=== PATIENT | female | born 1980 | race Caucasian/White ===

== ENCOUNTER 2022-11-23 09:07 | Emergency (ER) | payer BC, OTHER ==
[2022-11-23 09:20] VITALS: BP 118/62; PULSE 70
[2022-11-23] MEDS ORDERED: Lidocaine 1% 10 ML MDV INJECT ONE (09:26)
[2022-11-23] MEDS ORDERED: Diphtheria,Pertussis(Acell),Tetanus Vaccine 0.5 ML Syringe IM ONE (09:26)
== END 2022-11-23 10:39 | disposition home or self-care (01) ==
LOC: JD.ED 09:07
DX: S61.012A Laceration without foreign body of left thumb without damage to nail, initial encounter (principal); Z23 Encounter for immunization; W27.2XXA Contact with scissors, initial encounter
CPT/HCPCS: 12002; 90471; 90715; 99282-25; 99283; J3490